=== PATIENT | female | born 1970 | race Caucasian/White ===

== ENCOUNTER 2018-10-14 22:04 | Emergency (ER) | payer OTHER ==
[~2018-10-14] VITALS: Ht 165.1 cm; Wt 119.7 kg
[2018-10-14] MEDS ORDERED: METF-399 (22:18)
[2018-10-14] MEDS ORDERED: FURO40TA4 (22:18)
[2018-10-14] MEDS ORDERED: ROSU10TA27 (22:18)
[2018-10-14] MEDS ORDERED: LEVO200T6 (22:18)
[2018-10-14] MEDS ORDERED: FLUT16SP22 (22:18)
[2018-10-14] MEDS ORDERED: CLON0.5T13 (22:18)
[2018-10-14] MEDS ORDERED: DEXL60CA (22:18)
[2018-10-14 22:33] LABS: BILIRUBIN,URINE NEGATIVE (NEGATIVE); CLARITY,URINE CLEAR; COLOR,URINE YELLOW; GLUCOSE, URINE (UA) NEGATIVE (NEGATIVE); KETONES,URINE NEGATIVE (NEGATIVE); LEUKOCYTE ESTERASE ,URINE 2+ (NEGATIVE); NITRITE,URINE NEGATIVE (NEGATIVE); PH,URINE 6.5 (5-9); PROTEIN,URINE NEGATIVE (NEGATIVE); UROBILINOGEN,URINE NORMAL (NORMAL)
[2018-10-14 22:50] LABS: BACTERIA,URINE MODERATE /HPF
[2018-10-14 22:58] LABS: AMPHETAMINE SCREEN, URINE NEGATIVE (NEGATIVE); BARBITURATE SCREEN URINE NEGATIVE (NEGATIVE); BENZODIAZEPINES SCREEN URINE NEGATIVE (NEGATIVE); CANNABINOID SCREEN, URINE NEGATIVE (NEGATIVE); COCAINE SCREEN URINE NEGATIVE (NEGATIVE); METHADONE STAT NEGATIVE (NEGATIVE); METHAMPHETAMINE SCREEN URINE S NEGATIVE (NEGATIVE); OPIATE SCREEN URINE NEGATIVE (NEGATIVE); OXYCODONE STAT NEGATIVE (NEGATIVE); PROPOXYPHENE STAT NEGATIVE (NEGATIVE); TRICYCLIC ANTIDEPRESSANTS SCRE NEGATIVE (NEGATIVE)
[2018-10-14 23:00] LABS: BASOPHILS % (AUTO) 0 % (0-10); EOSINOPHILS # (AUTO) 0.3 10^3/uL (0.0-0.3); EOSINOPHILS % (AUTO) 4 % (0-10); HEMATOCRIT 39 % (35-52); LYMPHOCYTES % (AUTO) 41 % (12-44); MEAN CORPUSCULAR HEMOGLOBIN 29 PG (25-34); MEAN CORPUSCULAR HGB CONC 34 G/DL (32-36); MEAN CORPUSCULAR VOLUME 87 FL (80-99); MEAN PLATELET VOLUME 9.9 FL (7.4-10.4); MONOCYTES # (AUTO) 0.9 X 10^3 (0.0-1.0); MONOCYTES % (AUTO) 13 % (0-12); NEUTROPHILS # (AUTO) 3.1 X 10^3 (1.8-7.8); NEUTROPHILS % (AUTO) 42 % (42-75); PLATELET COUNT 412 10^3/uL (130-400); RED CELL DISTRIBUTION WIDTH 14.2 % (10.0-14.5); WHITE BLOOD COUNT 7.4 10^3/uL (4.3-11.0)
[2018-10-14 23:14] LABS: ALANINE AMINOTRANSFERASE 35 U/L (0-55); ALBUMIN 4.2 GM/DL (3.2-4.5); ALKALINE PHOSPHATASE 58 U/L (40-136); BILIRUBIN,TOTAL 0.2 MG/DL (0.1-1.0); BUN/CREATININE RATIO 16; CALCIUM 9.5 MG/DL (8.5-10.1); CARBON DIOXIDE 21 MMOL/L (21-32); CHLORIDE 103 MMOL/L (98-107); GFR ESTIMATED > 60; GLUCOSE 106 MG/DL (70-105); MAGNESIUM 1.9 MG/DL (1.8-2.4); POTASSIUM 3.7 MMOL/L (3.6-5.0); SODIUM 138 MMOL/L (135-145)
[2018-10-14 23:34] LABS: TSH (THYROID ANALYZER) 2.88 UIU/ML (0.35-4.94)
[2018-10-14] MEDS ORDERED: NITR-65 PO (23:48)
--- NOTE | 2018-10-14 23:48 | ED General ---
General Chief Complaint: Psych/Social Disorder Stated Complaint: L ARM NUMB,SOA Nursing Triage Note: soa, difficulty focousing, left arm numbness x15 min Nursing Sepsis Screen: No Definite Risk Source of Information: Patient History of Present Illness Date Seen by Provider: Oct 14, 2018 Time Seen by Provider: 22:09 Initial Comments PT ARRIVES VIA POV --DROVE SELF HERE FROM WORK STATES SHE WAS WORKING AT [employer] AND SUDDENLY SHE FELT LIGHTHEADED/DIZZY, FELT LIKE SHE COULDN'T BREATHE, "COULDN'T SEE", LEFT ARM AND NECK AND LOWER JAW STARTED TO FEEL NUMB AND TINGLY, FELT LIKE SHE "COULDN'T FOCUS", BOTH OF HER LEGS FELT HEAVY, AND STARTED SHAKING STATES SHE HAS BAD ANXIETY AND THIS FEELS LIKE HER PANIC ATTACKS, BUT USUALLY DOESN'T HAVE PROBLEMS FOCUSING OR HAVING HEAVINESS IN BOTH OF HER LEGS. STATES SHE TAKES KLONOPIN-UP TO 3 TIMES A DAY, BUT ONLY TOOK 1 DOSE THIS AM STATES SHE HAS A VERY STRESSFUL JOB DURING THE DAY, BUT THIS JOB IS LOW STRESS, AND DENIES ANY NEW OR WORSENING STRESSORS. PT IS DIABETIC, AND SOMETIMES FEELS LIKE THIS IF SHE IS HAVING LOW BLOOD SUGAR, BUT READING JUST PRIOR TO ARRIVAL WAS 113. STATES SHE LEFT WORK AND DROVE HERSELF HERE. 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 [place] Allergies and Home Medications Allergies Coded Allergies: codeine (Verified Allergy, Unknown, 10/14/18) hydrocodone (Verified Allergy, Unknown, 10/14/18) Home Medications Nitrofurantoin Monohyd/M-Cryst 100 Mg Capsule, 100 MG PO BID Prescribed by: JORDON KEMP on 10/14/18 8328 Patient Home Medication List Home Medication List Reviewed: Yes Review of Systems Review of Systems Constitutional: see HPI; No diaphoresis; dizziness EENTM: see HPI, other ("PROBLEMS FOCUSING" ) Respiratory: see HPI, short of breath Cardiovascular: no symptoms reported; No chest pain, No edema, No palpitations, No syncope Gastrointestinal: no symptoms reported Genitourinary: no symptoms reported : No (LMP 6 MONTHS AGO--HAS HAD BTL) Musculoskeletal: see HPI Skin: no symptoms reported Psychiatric/Neurological: See HPI, Anxiety; Denies Headache; Paresthesia, Tremors; Denies Weakness Hematologic/Lymphatic: No Symptoms Reported Immunological/Allergic: no symptoms reported Past Wovrent-Qovrpp-Bmsctf Hx Patient Social History Alcohol Use: Denies Use Recreational Drug Use: No Smoking Status: Former Smoker Type Used: Cigarettes 2nd Hand Smoke Exposure: No Recent Foreign Travel: No Contact w/Someone Who Travel: No Recent Infectious Disease Expo: No Recent Hopitalizations: No Physical Abuse: No Sexual Abuse: No Mistreated: No Fear: No Immunizations Up To Date Tetanus Booster (TDap): Unknown Seasonal Allergies Seasonal Allergies: No Past Medical History Surgeries: Yes (UTERINE/ENDOMETRIAL ABLATION 2003) Gallbladder, Tubal Ligation Respiratory: Yes Asthma Cardiac: Yes Chronic Edema/Swelling, High Cholesterol Neurological: No : No 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 oz. 119.174597by; BMI Method:Stated General Appearance: No Apparent Distress, Obese, Other (MILDLY TREMULOUS) HEENT: PERRL/EOMI Neck: Full Range of Motion, Normal Inspection, Non Tender, Supple; No Carotid Bruit, No JVD Respiratory: Normal Breath Sounds, No Accessory Muscle Use, No Respiratory Distress Cardiovascular: Regular Rate, Rhythm, No Edema, No JVD, No Murmur, Normal Peripheral Pulses Gastrointestinal: Non Tender, Soft Back: Normal Inspection Extremity: Normal Capillary Refill, Normal Inspection, Normal Range of Motion, Non Tender, No Calf Tenderness, No Pedal Edema Neurologic/Psychiatric: Alert, Oriented x3, No Motor/Sensory Deficits, inductor tester II- XII Norm as Tested, Other (ANXIOUS) Skin: Normal Color Progress/Results/Core Measures Suspected Sepsis Recent Fever Within 48 Hours: No Infection Criteria Present: None New/Unexplained Altered Menta: No Sepsis Screen: No Definite Risk SIRS Temperature:98.0 Pulse: 101 Respiratory Rate: 20 Laboratory Tests 10/14/18 22:20: White Blood Count 7.4 Blood Pressure 156 /101 Mean: 119 Laboratory Tests 10/14/18 22:20: Creatinine 0.80, Platelet Count 412H, Total Bilirubin 0.2 Results/Orders Lab Results Laboratory Tests Test 10/14/18 22:16 10/14/18 22:20 Range/Units Urine Color YELLOW Urine Clarity CLEAR Urine pH 6.5 5-9 Urine Specific [place] 1.015 L 1.016-1.022 Urine Protein NEGATIVE NEGATIVE Urine Glucose (UA) NEGATIVE NEGATIVE Urine Ketones NEGATIVE NEGATIVE Urine Nitrite NEGATIVE NEGATIVE Urine Bilirubin NEGATIVE NEGATIVE Urine Urobilinogen NORMAL NORMAL MG/DL Urine Leukocyte Esterase 2+ H NEGATIVE Urine RBC (Auto) 1+ H NEGATIVE Urine RBC NONE /HPF Urine WBC 5-10 H /HPF Urine Squamous Epithelial Cells 10-25 H /HPF Urine Crystals NONE /LPF Urine Bacteria MODERATE H /HPF Urine Casts NONE /LPF Urine Mucus NEGATIVE /LPF Urine Culture Indicated YES Urine Opiates Screen NEGATIVE NEGATIVE Urine Oxycodone Screen NEGATIVE NEGATIVE Urine Methadone Screen NEGATIVE NEGATIVE Urine Propoxyphene Screen NEGATIVE NEGATIVE Urine Barbiturates Screen NEGATIVE NEGATIVE Ur Tricyclic Antidepressants Screen NEGATIVE NEGATIVE Urine Phencyclidine Screen NEGATIVE NEGATIVE Urine Amphetamines Screen NEGATIVE NEGATIVE Urine Methamphetamines Screen NEGATIVE NEGATIVE Urine Benzodiazepines Screen NEGATIVE NEGATIVE Urine Cocaine Screen NEGATIVE NEGATIVE Urine Cannabinoids Screen NEGATIVE NEGATIVE White Blood Count 7.4 4.3-11.0 10^3/uL Red Blood Count 4.47 4.35-5.85 10^6/uL Hemoglobin 13.0 11.5-16.0 G/DL Hematocrit 39 35-52 % Mean Corpuscular Volume 87 80-99 FL Mean Corpuscular Hemoglobin 29 25-34 PG Mean Corpuscular Hemoglobin Concent 34 32-36 G/DL Red Cell Distribution Width 14.2 10.0-14.5 % Platelet Count 412 H 130-400 10^3/uL Mean Platelet Volume 9.9 7.4-10.4 FL Neutrophils (%) (Auto) 42 42-75 % Lymphocytes (%) (Auto) 41 12-44 % Monocytes (%) (Auto) 13 H 0-12 % Eosinophils (%) (Auto) 4 0-10 % Basophils (%) (Auto) 0 0-10 % Neutrophils # (Auto) 3.1 1.8-7.8 X 10^3 Lymphocytes # (Auto) 3.0 1.0-4.0 X 10^3 Monocytes # (Auto) 0.9 0.0-1.0 X 10^3 Eosinophils # (Auto) 0.3 0.0-0.3 10^3/uL Basophils # (Auto) 0.0 0.0-0.1 10^3/uL Sodium Level 138 135-145 MMOL/L Potassium Level 3.7 3.6-5.0 MMOL/L Chloride Level 103 98-107 MMOL/L Carbon Dioxide Level 21 21-32 MMOL/L Anion Gap 14 5-14 MMOL/L Blood Urea Nitrogen 13 7-18 MG/DL Creatinine 0.80 0.60-1.30 MG/DL Estimat Glomerular Filtration Rate > 60 BUN/Creatinine Ratio 16 Glucose Level 106 H 70-105 MG/DL Calcium Level 9.5 8.5-10.1 MG/DL Corrected Calcium 9.3 8.5-10.1 MG/DL Magnesium Level 1.9 1.8-2.4 MG/DL Total Bilirubin 0.2 0.1-1.0 MG/DL Aspartate Amino Transf (AST/SGOT) 21 5-34 U/L Alanine Aminotransferase (ALT/SGPT) 35 0-55 U/L Alkaline Phosphatase 58 40-136 U/L Troponin I < 0.028 <0.028 NG/ML Total Protein 7.0 6.4-8.2 GM/DL Albumin 4.2 3.2-4.5 GM/DL TSH [place] Testing 2.88 0.35-4.94 UIU/ML Serum Test, Qualitative NEGATIVE NEGATIVE Serum Alcohol < 10 <10 MG/DL My Orders Orders - JORDON KEMP DO Ed Iv/Invasive Line Start (10/14/18 22:16) Ekg Tracing (10/14/18 22:16) Monitor-Rhythm Ecg Trace Only (10/14/18 22:16) Alcohol (10/14/18 22:16) Cbc With Automated Diff (10/14/18 22:16) Comprehensive Metabolic Panel (10/14/18 22:16) Drug Screen Stat (Urine) (10/14/18 22:16) Hcg,Qualitative Serum (10/14/18 22:16) Magnesium (10/14/18 22:16) Thyroid Analyzer (10/14/18 22:16) Ua Culture If Indicated (10/14/18 22:16) Troponin I (10/14/18 22:16) Urine Culture (10/14/18 22:16) Nitrofurantoin Capsule,Macro (Macrobid C (10/15/18 00:00) Medications Given in ED Current Medications Medications Dose Ordered Sig/Sofy Route Start Time Stop Time Status Last Admin Dose Admin Nitrofurantoin Macrocrystals 100 mg ONCE ONCE PO 10/15/18 00:00 10/15/18 00:00 DC 10/14/18 23:51 100 MG Vital Signs/I&O 10/14/18 10/14/18 22:08 23:54 Temp 98.0 97.8 Pulse 101 82 Resp 20 23 B/P (MAP) 156/101 (119) 109/50 (69) Pulse Ox 95 97 O2 Delivery Room Air Room Air Capillary Refill : Less Than 3 Seconds Blood Pressure Mean: 119 Progress Note : Progress Note PT CALMED AND SYMPTOMS SPONTANEOUSLY RESOLVED UNEVENTFUL ER STAY ECG Initial ECG Impression Date: Oct 14, 2018 Initial ECG Impression Time: 22:31 Initial ECG Rate: 81 Initial ECG Rhythm: Normal Sinus Departure Impression Primary Impression: Anxiety Additional Impression: UTI (urinary tract infection) Disposition: 01 HOME, SELF-CARE Condition: Improved Departure-Patient Inst. Referrals: JAIDA NG MD (PCP/Family) Primary Care Physician Patient Instructions: Anxiety, Adult (DC), Urinary Tract Infection, Adult (DC) Add. Discharge Instructions: HOME, REST LOTS OF CLEAR LIQUIDS TAKE YOUR KLONOPIN NEEDED FOR ANXIETY FOLLOW UP WITH YOUR DR TOMORROW IF NO BETTER All discharge instructions reviewed with patient and/or family. Voiced understanding. Scripts Nitrofurantoin Monohyd/M-Cryst (Macrobid 100 mg Capsule) 100 Mg Capsule 100 MG PO BID, #20 CAP Prov: JORDON KEMP DO 10/14/18 JORDON KEMP DO Oct 14, 2018 23:48
[2018-10-14 23:54] VITALS: BP 109/50
[2018-10-15] MEDS ORDERED: NITROFURANTOIN 100 MG (MACROBID) CAPSULE PO ONE
== END 2018-10-14 23:55 | disposition home or self-care (01) ==
LOC: EDUNIT# 22:04 → ER 22:06
DX: F41.9 Anxiety disorder, unspecified (principal); N39.0 Urinary tract infection, site not specified; J45.909 Unspecified asthma, uncomplicated; E78.00 Pure hypercholesterolemia, unspecified; K21.9 Gastro-esophageal reflux disease without esophagitis; E66.9 Obesity, unspecified; E03.9 Hypothyroidism, unspecified; E11.9 Type 2 diabetes mellitus without complications; Z88.5 Allergy status to narcotic agent; Z87.891 Personal history of nicotine dependence; Z98.51 Tubal ligation status; Z68.41 Body mass index [BMI] 40.0-44.9, adult
CPT/HCPCS: 36415; 80053; 80306; 80320; 81000; 83735; 84443; 84484; 84703; 85025; 87088; 93005; 93041